=== PATIENT | female | born 1955 | race Caucasian/White ===

== ENCOUNTER 2017-09-26 16:53 | Emergency (ER) | END 2017-09-26 20:22 | disposition home or self-care (01) ==

== ENCOUNTER 2018-11-06 23:01 | Emergency (ER) | payer MEDICAID ==
[~2018-11-06] VITALS: Ht 157.5 cm; Wt 69.4 kg
[~2018-11-06 23:01] MED LIST: CLON-379 PO
[2018-11-06 23:06] VITALS: Ht 157.5 cm; Wt 69.4 kg
[2018-11-07] MEDS ORDERED: LORAZEPAM 2 MG INJ IV ONE (00:30)
[2018-11-07] MEDS ORDERED: LORA-441 PO (02:16)
--- NOTE | 2018-11-07 02:23 | ERD ---
ER Documentation Chief Complaint Chief Complaint Pt reports dizziness x 3 days and palpitations x 1 day, vomited 1x HPI Is a very pleasant 63-year-old female reports dizziness for 3 days of palpitations for 1 day. She says she got a lot of stress lately. Denies any fevers or chills. She denies any suicidal homicidal ideation. Denies any auditory visual hallucinations. Denies any chest pain shortness of breath ROS All systems reviewed and are negative except as per history of present illness. Medications Home Meds Active Scripts Lorazepam* (Ativan*) 0.5 Mg Tablet, 0.5 MG PO Q8H PRN for ANXIETY, #10 TAB Prov:MARYLIN SOARES 11/07/18 Clonidine Hcl* (Clonidine Hcl*) 0.1 Mg Tab, 0.1 MG PO TID PRN for ELEVATED BLOOD PRESSURE, #20 TAB Take one tablet PO PRN if systolic blood pressure is greater then 160mmHg. Prov:CECILIA TRAORE MD 09/26/17 Allergies Allergies: Coded Allergies: No Known Allergy (Unverified , 09/26/17) PMhx/Soc Medical and Surgical Hx: pt denies Medical Hx, pt denies Surgical Hx Hx Alcohol Use: No Hx Substance Use: No Hx Tobacco Use: No Smoking Status: Never smoker Physical Exam Vitals Vital Signs Date Temp Pulse Resp B/P (MAP) Pulse Ox O2 O2 Flow FiO2 Time Delivery Rate 11/07/18 67 16 112/67 98 Room Air 01:25 (82) 11/06/18 70 18 162/79 96 Room Air 23:59 (106) 11/06/18 97.7 70 24 161/92 98 23:06 (115) Physical Exam Const: No acute distress Head: Atraumatic Eyes: Normal Conjunctiva ENT: Normal External Ears, Nose and Mouth. Neck: Full range of motion. No meningismus. Resp: Clear to auscultation bilaterally Cardio: Regular rate and rhythm, no murmurs Abd: Soft, non tender, non distended. Normal bowel sounds Skin: No petechiae or rashes Back: No midline or flank tenderness Ext: No cyanosis, or edema Neur: Awake and alert Psych: Normal Mood and Affect Result Diagram: 11/06/18 2350 11/06/18 235 Results 24 hrs Laboratory Tests Test 7/7/19 00:15 11/06/18 23:50 Prothrombin Time 11.7 Sec Prothrombin Time Ratio 0.9 INR International Normalized Ratio 0.85 Activated Partial Thromboplast Time 30.9 Sec White Blood Count 10.9 10^3/ul Red Blood Count 4.40 10^6/ul Hemoglobin 13.4 g/dl Hematocrit 40.2 % Mean Corpuscular Volume 91.4 fl Mean Corpuscular Hemoglobin 30.5 pg Mean Corpuscular Hemoglobin Concent 33.3 g/dl Red Cell Distribution Width 12.8 % Platelet Count 363 10^3/UL Mean Platelet Volume 9.4 fl Immature Granulocytes % 0.200 % Neutrophils % 58.9 % Lymphocytes % 32.8 % Monocytes % 6.4 % Eosinophils % 1.4 % Basophils % 0.3 % Nucleated Red Blood Cells % 0.0 /100WBC Immature Granulocytes # 0.020 10^3/ul Neutrophils # 6.4 10^3/ul Lymphocytes # 3.6 10^3/ul Monocytes # 0.7 10^3/ul Eosinophils # 0.2 10^3/ul Basophils # 0.0 10^3/ul Nucleated Red Blood Cells # 0.0 10^3/ul Sodium Level 144 mmol/L Potassium Level 3.7 mmol/L Chloride Level 110 mmol/L Carbon Dioxide Level 23 mmol/L Anion Gap 11 Blood Urea Nitrogen 15 mg/dl Creatinine 0.81 mg/dl Est Glomerular Filtrat Rate mL/min > 60 mL/min Glucose Level 141 mg/dl Calcium Level 10.0 mg/dl Total Bilirubin 0.4 mg/dl Direct Bilirubin 0.00 mg/dl Indirect Bilirubin 0.4 mg/dl Aspartate Amino Transf (AST/SGOT) 52 IU/L Alanine Aminotransferase (ALT/SGPT) 69 IU/L Alkaline Phosphatase 136 IU/L Troponin I < 0.012 ng/ml B-Type Natriuretic Peptide 56 PG/ML Total Protein 8.6 g/dl Albumin 4.6 g/dl Globulin 4.00 g/dl Albumin/Globulin Ratio 1.15 Current Medications Medications Dose Sig/Carmen Start Time Status Last (Trade) Ordered Route PRN Stop Time Admin Dose Reason Admin Lorazepam 1 mg ONCE ONCE 11/07/18 DC 11/07/18 (Ativan) IV 00:30 11/07/18 00:39 00:31 Procedures/MDM EKG: Rate/Rhythm: [Normal Sinus Rhythm] QRS, ST, T-waves: [No changes consistent w/ acute ischemia] Impression: [No evidence of ischemia or arrhythmia] Chest X-ray 1V Interpreted by me: Soft Tissue: No acute abnormalities Bones: No acute abnormalities Mediastinum/Cardiac Silhouette/Lungs: [No acute abnormalities] Medical decision making: Patient's thoracic symptoms have stabilized while in the department and are stable for outpatient follow up. Exam and work up not consistent w/ ischemia, arrhythmia, PE or dissection. Patient symptomology seems to be more anxiety related. At this point is clini dariana stable for outpatient management. Advised to follow-up with PCP. Return immediately for return of symptoms. Departure Diagnosis: Primary Impression: Anxiety Condition: Stable Patient Instructions: Anxiety Reaction MARYLIN SOARES Nov 07, 2018 02:23
[2018-11-07 02:52] VITALS: BP 114/61; PULSE 68; RESP 16
== END 2018-11-07 02:53 | disposition home or self-care (01) ==
LOC: E/R 23:01
DX: F41.9 Anxiety disorder, unspecified (principal); R40.2142 Coma scale, eyes open, spontaneous, at arrival to emergency department; R40.2362 Coma scale, best motor response, obeys commands, at arrival to emergency department; R40.2252 Coma scale, best verbal response, oriented, at arrival to emergency department; R07.9 Chest pain, unspecified
CPT/HCPCS: 36415; 71045; 80053; 83880; 84484; 85025; 85610; 85730; 93005; 96374; J2060; Z7502